=== PATIENT | female | born 1970 | race Caucasian/White ===

== ENCOUNTER 2016-10-02 19:08 | Emergency (ER) | payer MEDICAID ==
[~2016-10-02] VITALS: Ht 152.4 cm; Wt 9.5 kg
[2016-10-02 22:51] VITALS: BP 124/80
== END 2016-10-02 22:51 | disposition home or self-care (01) ==
LOC: ED 19:08
DX: S93.401A Sprain of unspecified ligament of right ankle, initial encounter (principal); S23.3XXA Sprain of ligaments of thoracic spine, initial encounter; V49.9XXA Car occupant (driver) (passenger) injured in unspecified traffic accident, initial encounter; Y93.89 Activity, other specified; Y99.8 Other external cause status; Y92.89 Other specified places as the place of occurrence of the external cause
CPT/HCPCS: 72072; J2270

== ENCOUNTER 2018-02-16 17:31 | Emergency (ER) | payer OTHER ==
[~2018-02-16] VITALS: Ht 154.9 cm; Wt 91.2 kg
[2018-02-16 17:38] VITALS: Ht 154.9 cm; Wt 91.2 kg
[2018-02-16 20:05] LABS: UA SPECIFIC GRAVITY 1.025 (1.005-1.035); microscopic required? YES; urine erythrocyte TRACE (NEGATIVE)
[2018-02-16 20:08] LABS: BASOPHIL % 0.8 % (0-2); PLATELET COUNT 324 x10^3mcL (130-400); RED CELL DISTRIBUTION WIDTH 13.4 % (11.5-14.5)
[2018-02-16 20:24] LABS: CALCIUM 9.1 mg/dL (8.5-10.1); CHLORIDE SERUM 98 mmol/L (98-107); CREATININE SERUM 0.6 mg/dL (0.6-1.0); GFR1 > 60 mL/min; GLUCOSE SERUM 357 mg/dL (74-106); SODIUM SERUM 135 mmol/L (136-145)
[2018-02-16 20:28] LABS: ALKALINE PHOSPHATASE 125 U/L (46-116); ALT/SGPT 25 U/L (14-59); AST/SGOT 13 U/L (15-37); BILIRUBIN TOTAL 0.29 mg/dL (0.20-1.00); TOTAL PROTEIN, SERUM 7.7 g/dL (6.4-8.2)
[2018-02-16 20:44] LABS: ALBUMIN 3.3 g/dL (3.4-5.0)
[2018-02-16 21:59] VITALS: BP 125/72
== END 2018-02-16 21:59 | disposition home or self-care (01) ==
LOC: ED 17:31
PROVIDERS: Emergency Medicine
DX: M94.0 Chondrocostal junction syndrome [Tietze] (principal); N39.0 Urinary tract infection, site not specified
CPT/HCPCS: 36415; 83880; J1885; Q0092

== ENCOUNTER 2018-04-15 16:01 | Emergency (ER) | payer SELFPAY ==
[~2018-04-15] VITALS: Ht 149.9 cm; Wt 93.4 kg
[2018-04-15 16:27] VITALS: Ht 149.9 cm; Wt 93.4 kg
[2018-04-15 18:33] LABS: BASOPHIL % 0.4 % (0-2); PLATELET COUNT 266 x10^3mcL (130-400); RED CELL DISTRIBUTION WIDTH 13.6 % (11.5-14.5)
[2018-04-15 18:37] LABS: CARBON DIOXIDE 26.3 mmol/L (21-32); CHLORIDE SERUM 102 mmol/L (98-107); CREATININE SERUM 0.6 mg/dL (0.6-1.0); GFR1 > 60 mL/min; GLUCOSE SERUM 195 mg/dL (74-106); POTASSIUM SERUM 3.9 mmol/L (3.5-5.1); SODIUM SERUM 137 mmol/L (136-145)
[2018-04-15 18:42] LABS: ALKALINE PHOSPHATASE 108 U/L (46-116); ALT/SGPT 21 U/L (14-59); AST/SGOT 8 U/L (15-37); BILIRUBIN TOTAL 0.3 mg/dL (0.20-1.00); LIPASE 67 IU/L (73-393); TOTAL PROTEIN, SERUM 7.2 g/dL (6.4-8.2)
[2018-04-15 21:22] VITALS: BP 106/78
== END 2018-04-15 21:22 | disposition home or self-care (01) ==
LOC: ED 16:01
PROVIDERS: Emergency Medicine
DX: N39.0 Urinary tract infection, site not specified (principal); E11.9 Type 2 diabetes mellitus without complications
CPT/HCPCS: J0696; J2405; J7030

== ENCOUNTER 2018-06-30 17:22 | Emergency (ER) | payer OTHER ==
[~2018-06-30] VITALS: Ht 152.4 cm; Wt 99.8 kg
[2018-06-30 17:33] VITALS: Ht 152.4 cm; Wt 99.8 kg
[2018-06-30 20:07] LABS: BASOPHIL % 0.8 % (0-2); PLATELET COUNT 287 x10^3mcL (130-400); RED CELL DISTRIBUTION WIDTH 13.7 % (11.5-14.5)
[2018-06-30 20:14] LABS: CALCIUM 9.3 mg/dL (8.5-10.1); CARBON DIOXIDE 28.9 mmol/L (21-32); CHLORIDE SERUM 101 mmol/L (98-107); CREATININE SERUM 0.5 mg/dL (0.6-1.0); GFR1 > 60 mL/min; GLUCOSE SERUM 262 mg/dL (74-106); POTASSIUM SERUM 3.9 mmol/L (3.5-5.1); SODIUM SERUM 136 mmol/L (136-145)
[2018-06-30 20:18] LABS: ALKALINE PHOSPHATASE 116 U/L (46-116); ALT/SGPT 23 U/L (14-59); AST/SGOT 12 U/L (15-37); BILIRUBIN TOTAL 0.3 mg/dL (0.20-1.00); TOTAL PROTEIN, SERUM 7.6 g/dL (6.4-8.2)
[2018-06-30 20:19] LABS: ALBUMIN 3.3 g/dL (3.4-5.0)
[2018-06-30 20:31] LABS: T3 TOTAL 1.37 ng/mL
[2018-06-30 20:45] LABS: FREE T4 1.15 ng/dL (0.76-1.46); FREE THYROXINE INDEX 3.1 ug/dL (1.4-4.5); T4(THYROXINE) 8.6 ug/dL (4.7-13.3)
[2018-06-30 22:02] LABS: AMPHETAMINE QUAL UR NONE DETECTED (See below)
[2018-06-30 23:38] VITALS: BP 110/68
== END 2018-06-30 23:38 | disposition home or self-care (01) ==
LOC: ED 17:22
PROVIDERS: Emergency Medicine
DX: R07.89 Other chest pain (principal); F41.9 Anxiety disorder, unspecified; E11.9 Type 2 diabetes mellitus without complications
CPT/HCPCS: 36415; 82962; 84439